=== PATIENT | male | born 1945 | race Caucasian/White ===

== ENCOUNTER 2018-08-18 11:42 | Day surgery (SDC) | payer MEDICARE, OTHER ==
[~2018-08-18] VITALS: Ht 188 cm; Wt 95.2 kg
[~2018-08-18 11:42] MED LIST: ANDRODERM1 EAC1 TD; ATOR20 PO; CLARITIN10 MG PO; FAMO10 PO; LOSA25 PO; MELO7.5 PO; Omega 3 1,0001 EACH PO; TUMERIC PO
--- NOTE | 2018-08-18 15:50 | NUR ---
08/18/18 1550 Gregory Matson LATE ENTRY: PT CONTINUES TO COUGH & C/0 04/18 THROAT PAIN IN POST OP. NO N/V IN POST OP. TOLERATING ORAL INTAKE. DR NOTIFIED, ASPIRATION PROTOCOL OFFERED TO DR. ZIMMER. DR ZIMMER ONLY ORDERED PT TO GO HOME W/ INCENTIVE SPIROMETER. INCENTIVE SPIROMETER GIVEN AND TEACHING COMPLETE. PT AND SPOUSE EDUCATED ON S/S OF GI BLEED & TO CALL OR SEEK HELP WHEN NEEDED. BOTH STATE AN UNDERSTANDING. PT STATES A DESIRE TO DISCHARGE HOME. VITAL SIGNS WITHIN PTS PRE OP PARAMETERS.
--- NOTE | 2018-08-18 16:00 | NUR ---
08/18/18 1600 Gregory Matson LATE ENTRY: PT HERE FOR COLONOSCOPY. DURING PROCEDURE PT STARTING HAVING DARK RED TINGED EMESIS. DR ZIMMER NOTIFIED, PT SUCTIONED ORALLY. VITAL SIGNS WITHIN PT PARAMETERS. DR BUTLER, ANESTHESIOLOGIST CONSULTED. NO ORDERS GIVEN BY DR BUTLER OR DR. ZIMMER. DR ZIMMER CONTINUES WITH COLONOSCOPY. PT TOLERATED PROCEDURE WITH NO SIGNS OF PAIN. PT WAS SEDATION SCALE 5. AFTER FINISHING COLONOSCOPY PT CONTINUES TO HAVE DARK RED TINGED EMESIS AND SUCTIONED ORAL A TOTAL OF 50MLS. DR ZIMMER AWARE, PT FOLLOWING COMMANDS IN ROOM WITH NO C/O OF PAIN, SOB, OR CHEST PAIN AFTER WAKING UP FROM SEDATION. VITALS STILL WITHIN NORMAL RANGE. ABDOMEN SOFT TO PALPATION. DR ZIMMER CONSULTED FOR FURTHER ORDERS, NO ORDERS GIVEN AT THIS TIME. CHARGE NURSE AWARE OF SITUATION. PER DR ZIMMER OK FOR PT TO GO TO POST OP STATUS FOR RECOVERY.
[2018-08-19] MEDS ORDERED: Vitamin B Comple1 EA PO (14:00)
== END 2018-08-18 15:30 | disposition home or self-care (01) ==
LOC: ORSCSDS 11:42
PROVIDERS: Surgery
PROC: 0DBL8ZX Excision of Transverse Colon, Via Natural or Artificial Opening Endoscopic, Diagnostic (ICD-10-PCS; principal; 2018-08-18 13:00)
DX: Z12.11 Encounter for screening for malignant neoplasm of colon (principal); D12.3 Benign neoplasm of transverse colon; K21.9 Gastro-esophageal reflux disease without esophagitis; I10 Essential (primary) hypertension; E78.5 Hyperlipidemia, unspecified; Z86.010 Personal history of colon polyps; Z79.899 Other long term (current) drug therapy
CPT/HCPCS: 88305; J1980; J2405; J7120

== ENCOUNTER 2018-08-19 13:23 | Emergency (ER) | payer MEDICARE, OTHER ==
[~2018-08-19] VITALS: Ht 188 cm; Wt 94.8 kg
[2018-08-19 13:55] LABS: BASOPHILS ABSOLUTE AUTO 0.03 K/mm3 (0.00-0.23); BASOPHILS PERCENT AUTO 0 % (0-2); EOSINOPHILS PERCENT AUTO 0 % (0-6); IMMATURE GRAN ABSOLUTE AUTO 0.04 K/mm3 (0.00-0.10); IMMATURE GRAN PERCENT AUTO 0 % (0-1); LYMPHOCYTES PERCENT AUTO 7 % (21-46); MONOCYTES ABSOLUTE AUTO 0.97 K/mm3 (0.16-1.47); MONOCYTES PERCENT AUTO 6 % (4-13); Mean Corpuscular HGB 31.7 pg (26.0-34.0); Mean Corpuscular HGB Conc 34.7 g/dL (31.5-36.5); Mean Corpuscular Volume 91 fL (80-100); Mean Platelet Volume 8.9 fL (9.1-12.4); NEUTROPHILS ABSOLUTE AUTO 14.27 K/mm3 (1.96-9.15); NEUTROPHILS PERCENT AUTO 86 % (41-73); Platelet Count 256 K/mm3 (150-400); RDW Coefficient Variation 12.2 % (11.7-14.2); Red Blood Cell Count 5.37 M/mm3 (4.30-5.90); White Blood Cell Count 16.51 K/mm3 (4.00-11.30)
[2018-08-19] MEDS ORDERED: Vitamin B Comple1 EA PO (14:00)
[2018-08-19 14:20] LABS: Alanine Aminotransfer (ALT/SGP 19 U/L (12-78); Albumin/Globulin Ratio 0.9 (0.8-1.8); Alk Phos 47 U/L (50-136); Anion Gap 8 mmol/L (6-16); Aspartate Aminotrans (AST/SGOT 11 U/L (12-37); Bilirubin, Total 1.7 mg/dL (0.1-1.0); Blood Urea Nitrogen 23 mg/dL (8-24); Bun/Creatinine Ratio 21.5 (12.0-20.0); CO2, Blood 27 mmol/L (21-32); Calcium, Blood 9.4 mg/dL (8.5-10.1); Chloride, Blood 94 mmol/L (98-108); Creatinine, Blood 1.07 mg/dL (0.60-1.20); Globulin, Blood 4.4 g/dL (2.2-4.0); Glomerular Filtration Rate >60 (60-); Glucose, Blood 136 mg/dL (70-99); Potassium, Blood 4.2 mmol/L (3.5-5.5); Sodium, Blood 129 mmol/L (136-145); Total Protein, Blood 8.4 g/dL (6.4-8.2)
== END 2018-08-19 17:32 | disposition home or self-care (01) ==
LOC: ER 13:23
PROVIDERS: Physician Assistant
DX: K20.9 Esophagitis, unspecified (principal); Z87.891 Personal history of nicotine dependence
CPT/HCPCS: 36415; 70491; 80053; 85025; 96360; 96361; 99284-25; J1100; J7030; Q9967

== ENCOUNTER 2024-10-23 05:59 | Day surgery (SDC) | payer OTHER ==
[~2024-10-23] VITALS: Ht 185.4 cm; Wt 102.8 kg
[2024-10-23] VITALS (8 sets, daily range): BP systolic 85–1221; BP diastolic 55–93
[~2024-10-23 05:59] MED LIST changes: +C COMPLEX1000 M1 PO; +GABAPENTIN600 MG PO; +LISI20 PO; +METFORMIN HCL500 M2 PO; +PRILOSEC OTC20 MG PO; +Vitamin B Comple1 EA PO
[2024-10-23] MEDS ORDERED: Tranexamic Acid 100 ML IV SCH (06:10)
[2024-10-23] MEDS ORDERED: Ropivacaine 0.5% HCl/Pf 123.125 MG,EPINEPHrine HCL 0.25 MG,Ketorolac Tromethamine 15 MG... INFIL SCH (06:10)
[2024-10-23] MEDS ORDERED: OxyCODONE HCL 10 MG TABCR PO SCH (06:10)
[2024-10-23] MEDS ORDERED: Lactated Ringer's 1,000 ML IV SCH ×2 (06:10→08:05)
[2024-10-23] MEDS ORDERED: Acetaminophen 500 MG Tab PO SCH ×2 (06:10→16:00)
[2024-10-23] MEDS ORDERED: Chlorhexidine Mouth Care 15 ML UDC MT SCH (06:10)
[2024-10-23] MEDS ORDERED: CeFAZolin Sodium 2,000 MG in NS 100 ML IV SCH ×2 (06:10→15:30)
[2024-10-23] MEDS ORDERED: CeFAZolin Sodium 2,000 MG VIAL ONE (06:50)
[2024-10-23] MEDS ORDERED: propofoL 100 ML IV ONE (07:31)
[2024-10-23] MEDS ORDERED: Midazolam HCl 1MG / ML 2ML Vial ONE (07:33)
[2024-10-23] MEDS ORDERED: Prochlorperazine Edisylate 10 mg Vial IV PRN (08:05)
[2024-10-23] MEDS ORDERED: Metoclopramide HCl 5MG / ML 2ML Vial IV PRN (08:05)
[2024-10-23] MEDS ORDERED: OxyCODONE HCL 5 MG TAB PO PRN ×2 (08:05)
[2024-10-23] MEDS ORDERED: Magnesium Hydroxide Conc 10 ML UDC PO PRN (08:05)
[2024-10-23] MEDS ORDERED: DiphenhydrAMINE HCL 25 MG Cap PO PRN (08:10)
[2024-10-23] MEDS ORDERED: HYDROmorphone HCl/Pf 1MG SYR IV PRN (08:10)
[2024-10-23] MEDS ORDERED: Ondansetron HCl 2 MG / ML 2ML Vial IV PRN (08:10)
[2024-10-23] MEDS ORDERED: FLU VACC TS2024-25(6MOS UP)/PF 45 MCG/0.5 ML SYRINGE IM SCH (08:10)
[2024-10-23] MEDS ORDERED: Bisacodyl 10 MG Supp PR PRN (08:15)
[2024-10-23] MEDS ORDERED: Promethazine HCl 25 MG Tab PO PRN (08:15)
--- NOTE | 2024-10-23 08:57 | NUR ---
PATIENT'S PARTIAL DENTURES LEFT IN. GLASSES WERE GIVEN TO PATIENT'S SPOUSE, PER PATIENT. HEARING AIDES WERE LEFT AT HOME PER PATIENT.
[2024-10-23] MEDS ORDERED: Phenylephrine HCl 10mg/ml 1 ml Vial ONE (09:21)
[2024-10-23] MEDS ORDERED: Ketorolac Tromethamine 30mg Vial ONE (09:21)
[2024-10-23] MEDS ORDERED: Ketorolac Tromethamine 15mg Vial IV SCH (12:00)
--- NOTE | 2024-10-23 13:23 | NUR ---
THERAPY: PT IN ROOM TO WORK WITH PATIENT. PT UP TO AMBULATE HALLWAY WITH WALKER. CONTINUES TO DENY PAIN.
--- NOTE | 2024-10-23 19:05 | NUR ---
PT HAS BEEN STABLE POST OP DAY 0 LEFT BRENDAN. PT CLEARED THERAPY. WORKED WELL WITH STAFF TO MOBILIZE TO CHAIR. PT TOLERATING DIET AND VOIDING WELL. IV S.L. PT PAIN CONTROLLED WITH PRN AND SCHEDULED MEDICATIONS. DRESSIND CLEAN AND DRY. DISCHARGE COMPLETED. ATTEMPTED TO CALL FAMILY TO OFFICE COORDINATOR PATIENT, NO ANSWER.
--- NOTE | 2024-10-23 20:10 | NUR ---
DISCHARGE SUMMARY POD 0 L BRENDAN. VSS. TOLERATING ORALS, DENIES NAUSEA. VOIDING. AMBULATES USING FWW c GB. PASSED PHYSCIAL THERAPY TODAY. PT REPORTS PAIN TOLEABLE c ORAL ANALGESICS PER EMAR. PRINEO DRESSING C/D/I. POLAR PACK IN USE T/O DAY, DISCHARGED c PT. DISCHARGE INSTRUCTIONS GIVEN, PT VERBALIZES UNDERSTANDING. PT STATES NO FURTHER QUESTIONS AT THIS TIME. ALL PERSONAL BELONGINGS c PT. PT D/C'd VIA WHEELCHAIR TO [facility], DRIVEN BY DAUGHTER. ALSO PRESENT AT TIME OF DISCHARGE.
[2024-10-23] MEDS ORDERED: Docusate Sodium 100 MG Cap PO SCH (21:00)
[2024-10-23] MEDS ORDERED: Gabapentin 300 MG Cap PO SCH (21:00)
[2024-10-24] MEDS ORDERED: Omeprazole 20 MG CapCR PO SCH (06:00)
[2024-10-24] MEDS ORDERED: Lisinopril 20 MG Tab PO SCH (09:00)
[2024-10-24] MEDS ORDERED: Aspirin 81 MG Chew PO SCH (09:00)
[2024-10-24] MEDS ORDERED: Gabapentin 300 MG Cap PO SCH (14:00)
== END 2024-10-23 20:18 | disposition home or self-care (01) ==
LOC: ORSCMMR 05:59 → SURS 10:21 → ORSCMMR 10:21 → SURS 20:18 → ORSCMMR 10-25 09:30
PROVIDERS: Orthopaedic Surgery
PROC: 0SRB0JA Replacement of Left Hip Joint with Synthetic Substitute, Uncemented, Open Approach (ICD-10-PCS; principal; 2024-10-23 07:30)
DX: M16.12 Unilateral primary osteoarthritis, left hip (principal); I10 Essential (primary) hypertension; G47.33 Obstructive sleep apnea (adult) (pediatric); Z79.899 Other long term (current) drug therapy; Z87.891 Personal history of nicotine dependence
CPT/HCPCS: 72170; 97110; 97116; 97162; A9270; C1776; J0171; J0690; J0735; J1885; J2250; J2371; J2704; J2795; J7120